=== PATIENT | male | born 1985 | race Caucasian/White ===

== ENCOUNTER 2018-12-20 01:21 | Emergency (ER) | payer SELFPAY ==
[~2018-12-20] VITALS: Ht 180.3 cm; Wt 86.0 kg
[2018-12-20 01:36] VITALS: BP 128/75; PULSE 65; RESP 17; Ht 180.3 cm; Wt 86.0 kg
== END 2018-12-20 02:13 | disposition left against medical advice (07) ==
LOC: FTE 01:21
DX: Z53.21 Procedure and treatment not carried out due to patient leaving prior to being seen by health care provider (principal)